=== PATIENT | female | born 1965 | race Caucasian/White ===

== ENCOUNTER 2017-05-06 11:42 | Emergency (ER) | payer OTHER ==
[~2017-05-06] VITALS: Ht 170.2 cm; Wt 97.1 kg
[~2017-05-06 11:42] MED LIST: MAGNESIUM CITRA1 BOT PO
[2017-05-06] MEDS ORDERED: CYCLOBENZAPRINE10 M1 PO (11:55)
[2017-05-06] MEDS ORDERED: DULOXETINE60 MG PO (11:55)
[2017-05-06] MEDS ORDERED: ROPINIROLE HYDRO1 M1 PO (11:56)
[2017-05-06] MEDS ORDERED: GABAPENTIN 400400 M1 PO (11:56)
--- OUTSIDE RECORDS SUMMARY | 2017-05-06 11:56 | External Medical Summary Rpt ---
Author Author [employer] [facility], [employer] Organization [employer] Address Unknown Phone Unavailable
--- OUTSIDE RECORDS SUMMARY | 2017-05-06 11:56 | External Medical Summary Rpt ---
Author Author , Organization [employer] Address Unknown Phone Unavailable Purpose Continuity of Care Document - through 2016
--- OUTSIDE RECORDS SUMMARY | 2017-05-06 11:56 | External Medical Summary Rpt ---
Author Author , Organization [employer] Address Unknown Phone Unavailable Purpose Continuity of Care Document - 09-22-2012 through 2016 Immunization Name Date Route CVX Reacti Commen Provid Is Given on t er Refuse d Tdap, Histor H149 No Adsorb 2011 ical ed Inform ation - Source Unspec ified
--- OUTSIDE RECORDS SUMMARY | 2017-05-06 11:56 | External Medical Summary Rpt ---
Author Author [employer] Organization [employer] Address Unknown Phone Unavailable Purpose Continuity of Care Document - through 2016
[2017-05-06] MEDS ORDERED: BUPROPION HCL75 M1 PO (11:57)
[2017-05-06] MEDS ORDERED: OMEPRAZOLE40 MG PO (11:57)
[2017-05-06] MEDS ORDERED: DICLOFENAC SOD100 M2 PO (11:57)
--- NOTE | 2017-05-06 12:32 | Urgent Treatment Center Report ---
History of Present Issue Date/Time Seen by Provider 05/06/17 1227 Visit Reason Pt arrived:Walked Presenting Problem:PT STATES HAVING FIBROMYALGIA FLARE UP FOR PAST THREE DAYS. STATES HER MEDICATIONS ARE NOT HELPING Location if Accident: Onset of symptoms date/time:/ or onset unknown for:MEDICAL HX UNKNOWN Have you (or family members/close friends) recently traveled outside the [place]? N If Yes, where/when: Have you had exposure to infectious disease within the past month? TB? Other? Specify: Patient state that she has a history of fibromyalgia and is currently being treated by her family doctor State that she has been having a "flare up" for the last three days where the pain in her legs are worse and her medication does not seem to be helping much Source patient ALLERGIES Coded Allergies: No Known Allergies (05/06/17) Home Medications Reported Medications Cyclobenzaprine Hcl 10 MG PO DAILY #30 DULOXETINE HCL (Duloxetine) 60 MG PO NIGHTLY #30 ROPINIROLE HCL (Ropinirole Hydrochloride) 1 MG PO NIGHTLY #30 Gabapentin (Gabapentin 400MG Capsule) 400 MG PO TID #90 Diclofenac Sodium (Diclofenac Sodium ER) 100 MG PO BID #54 Omeprazole (Omeprazole 40MG) 40 MG PO DAILY #30 BUPROPION HCL (Bupropion HCl 75MG) 75 MG PO DAILY #30 History Medical History General CAD? No Angina: No HI: No Hypertension? No Hyperlipidemia? No CHF? No DVT? No PE? No COPD? No Asthma? Yes Anemia? No GERD? No Gastric ulcers? No GI Bleed? No Hernia? No Thyroid Problems? No Hypothyroidism? No CVA? No Seizures? No Diabetes? No Renal Insuffiency? No UTI? No Stones? No GB Disease: No Nephritic Syndrome? No Asplenia? No Hepatitis? No Sickle Cell Disease? No Arthritis? No Migraines? No Cataracts? No Glaucoma? No MRSA? No HIV? No TB? No Anxiety? No Depression? No Cancer? No More? 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 No: respiratory distress. 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 No Results/Orders Current Medication Orders Sig/Jaron Start time Last Medication Dose Route Stop Time Status Admin Ketorolac 0 .STK-MED ONE 05/06 1248 DC Tromethamine .ROUTE Methylprednisolone 0 .STK-MED ONE 05/06 1248 DC Sodium Succinate .ROUTE Ketorolac 60 MG ONCE ONE 05/06 1245 DC 05/06 Tromethamine IM 05/06 1246 1252 Methylprednisolone 60 MG ONCE ONE 05/06 1245 DC 05/06 Sodium Succinate IM 05/06 1246 1251 Departure Departure Time of Disposition 1241 Disposition DC Home or Self Care(routine) Clinical Impression Primary Impression: Muscle pain, fibromyalgia Condition STABLE Referrals Lionel Vernon MD (PCP/Family): 2 Days-Call Office if no improvement Patient Instructions Fibromyalgia (Alternative Therapy), Fibromyalgia ( Alternative Therapy) Additional Instructions Continue to take currently prescribed medication Follow up with family doctor tomorrow if no improvement Return if needed Discharge Counseling Counseled pt/family regarding diagnosis, medications/RX, home care, follow up needs at [id number]
[2017-05-06 13:06] VITALS: BP 143/77
== END 2017-05-06 13:07 | disposition home or self-care (01) ==
LOC: UTC 11:42
DX: M79.7 Fibromyalgia (principal)